=== PATIENT | female | born 1975 | race Two or more races ===

== ENCOUNTER 2023-04-05 21:56 | Emergency (ER) | payer MEDICAID, OTHER ==
[~2023-04-05] VITALS: Ht 170.2 cm; Wt 69.3 kg
[2023-04-05 21:59] VITALS: O2SAT 100
[2023-04-05 22:25] VITALS: BP 171/92; PULSE 71; RESP 18; TEMP 98.7
[2023-04-05] MEDS ORDERED: DOXY-286 PO (22:58)
[2023-04-05] MEDS ORDERED: TETANUS-DIPTH-ACEL PERTUSSIS 0.5ML SYR Tdap IM ONE (23:15)
== END 2023-04-05 23:37 | disposition home or self-care (01) ==
LOC: ER 21:56
DX: S80.852A Superficial foreign body, left lower leg, initial encounter (principal); Z79.899 Other long term (current) drug therapy; Z88.0 Allergy status to penicillin; W22.8XXA Striking against or struck by other objects, initial encounter; Y93.01 Activity, walking, marching and hiking; Y92.89 Other specified places as the place of occurrence of the external cause; Y99.8 Other external cause status
CPT/HCPCS: 10120; 90471; 90715

== ENCOUNTER → 2023-05-27 02:51 | Emergency (ER) | payer MEDICAID, OTHER ==
[~2023-05-27] VITALS: Ht 170.2 cm; Wt 59.1 kg
[~2023-05-27 02:51] MED LIST: DOXY-286 PO
[2023-05-27 03:09] VITALS: BP 147/106; PULSE 104; RESP 17; O2SAT 98
== END | disposition left against medical advice (07) ==
LOC: ER 02:51
DX: R10.11 Right upper quadrant pain (principal); R11.2 Nausea with vomiting, unspecified; Z53.21 Procedure and treatment not carried out due to patient leaving prior to being seen by health care provider